=== PATIENT | female | born 1985 | race Caucasian/White ===

== ENCOUNTER 2017-01-24 12:02 | Outpatient (CLI) | payer OTHER ==
[~2017-01-24] VITALS: Ht 157.5 cm; Wt 93.5 kg
[~2017-01-24 12:02] MED LIST: IBUP-1050 PO; NUVVR VAGRING; SUMA25TA12 PO
[2017-01-24 13:15] LABS: HEMATOCRIT 34.8 % (37-47); MEAN CELL VOLUME 92.3 fL (80-100); MEAN CORPUSCULAR HEMOGLOBIN 31.8 pg (25-34); MEAN CORPUSCULAR HGB CONC 34.5 g/dl (32-36); MEAN PLATELET VOLUME 10.8 fL (7.4-10.4); PLATELET COUNT 168 K/uL (130-400); RED BLOOD COUNT 3.77 M/uL (4.2-5.4); WHITE BLOOD COUNT 11.42 K/uL (4.8-10.8)
[2017-01-24 13:33] VITALS: Ht 157.5 cm; Wt 93.5 kg
[2017-01-24] MEDS ORDERED: MAGN1TAB19 (13:36)
[2017-01-24] MEDS ORDERED: PRENTAB26 PO (13:36)
[2017-01-24 13:40] LABS: ALB/GLOB RATIO 0.6 (0.9-2); ALKALINE PHOSPHATASE 158 U/L (45-117); ALT/SGPT 15 U/L (12-78); AST/SGOT 19 U/L (15-37); BLOOD UREA NITROGEN 7 mg/dl (7-18); BUN/CREATININE RATIO 12.8 (10-20); CALCIUM 8.7 mg/dl (8.5-10.1); CARBON DIOXIDE 21 mmol/L (21-32); CHLORIDE 108 mmol/L (98-107); CREATININE 0.54 mg/dl (0.60-1.20); GLUCOSE 70 mg/dl (70-99); POTASSIUM 3.9 mmol/L (3.5-5.1); SODIUM 138 mmol/L (136-145)
--- NOTE | 2017-01-24 14:48 | Progress Note ---
Progress Note Date of Service Jan 24, 2017. Progress Note Outpatient Note 32 F P0000 at 39.3 weeks seen in office earlier today and had some RUQ pain with soft stools this AM. BP and urine dipped negative in office today. Patient seen and PIH labs done and all wnl. Urine negative for protein and BP here not elevated at 131/77. FHT Cat 1. No contractions. No leakage of fluid orn any bleeding. She does have RUQ pain with deep palpation which seems to be positional with the baby in her rib cage due to larger size. Will d/c home not in labor with no evidence for gestational hypertension or pre-eclampsia. Last 24 Hours Test 01/24/17 12:59 White Blood Count 11.42 K/uL Red Blood Count 3.77 M/uL Hemoglobin 12.0 g/dL Hematocrit 34.8 % Mean Corpuscular Volume 92.3 fL Mean Corpuscular Hemoglobin 31.8 pg Mean Corpuscular Hemoglobin Concent 34.5 g/dl RDW Standard Deviation 52.5 fL RDW Coefficient of Variation 15.7 % Platelet Count 168 K/uL Mean Platelet Volume 10.8 fL Sodium Level 138 mmol/L Potassium Level 3.9 mmol/L Chloride Level 108 mmol/L Carbon Dioxide Level 21 mmol/L Anion Gap 9.0 mmol/L Blood Urea Nitrogen 7 mg/dl Creatinine 0.54 mg/dl Est Creatinine Clear Calc Drug Dose 159.3 ml/min Estimated GFR () 144.7 Estimated GFR (Non- 124.9 BUN/Creatinine Ratio 12.8 Random Glucose 70 mg/dl Calcium Level 8.7 mg/dl Total Bilirubin 0.2 mg/dl Direct Bilirubin < 0.1 mg/dl Aspartate Amino Transf (AST/SGOT) 19 U/L Alanine Aminotransferase (ALT/SGPT) 15 U/L Alkaline Phosphatase 158 U/L Total Protein 6.2 gm/dl Albumin 2.4 gm/dl Globulin 3.8 gm/dl Albumin/Globulin Ratio 0.6
== END 2017-01-24 14:55 | disposition home or self-care (01) ==
LOC: C.LD 12:02 → C.OPB 12:02 → EEVIPCON 12:02 → C.LD 13:25 → C.OPB 14:55
PROVIDERS: ATTEND Obstetrics & Gynecology
DX: O99.89 Other specified diseases and conditions complicating pregnancy, childbirth and the puerperium (principal); R10.11 Right upper quadrant pain; Z3A.39 39 weeks gestation of pregnancy

== ENCOUNTER 2017-02-02 08:24 | Inpatient (IN) | payer OTHER ==
[~2017-02-02] VITALS: Ht 157.5 cm; Wt 92.7 kg
[~2017-02-02 08:24] MED LIST changes: +MAGN1TAB19; +PRENTAB26 PO
[2017-02-02] MEDS ORDERED: LACTATED RINGER'S 1000ML 1,000 ML IV PRN (08:48)
[2017-02-02] MEDS ORDERED: DINOPROSTONE 10 MG INSERT PV ONE ×2 (09:00→21:15)
--- NOTE | 2017-02-02 09:24 | Progress Note ---
Progress Note Date of Service Feb 02, 2017. Progress Note 32 W F P0010 at 40.5 weeks for post-dates. GBS is negative. Cervix 1/50/-3/ posterior/Intact. EFW 8.5 lbs. Cervidil 10 mg inserted vaginally for cervical ripening. FHT Cat 1. Anticipate normal delivery.
[2017-02-02 09:42] LABS: HEMATOCRIT 34.9 % (37-47); MEAN CELL VOLUME 93.1 fL (80-100); MEAN CORPUSCULAR HEMOGLOBIN 31.7 pg (25-34); MEAN CORPUSCULAR HGB CONC 34.1 g/dl (32-36); MEAN PLATELET VOLUME 11.1 fL (7.4-10.4); PLATELET COUNT 171 K/uL (130-400); RED BLOOD COUNT 3.75 M/uL (4.2-5.4); WHITE BLOOD COUNT 12.19 K/uL (4.8-10.8)
[2017-02-02 11:02] VITALS: Ht 157.5 cm; Wt 92.7 kg
[2017-02-02] MEDS ORDERED: CALCIUM CARBONATE 500 MG CHEWABLE ONE (20:13)
[2017-02-02] MEDS ORDERED: NURSING VERBAL MED ORDER ONE (20:15)
[2017-02-02] MEDS ORDERED: CALCIUM CARBONATE 500 MG CHEWABLE PO PRN (20:15)
--- NOTE | 2017-02-02 21:30 | Progress Note ---
Progress Note Date of Service Feb 02, 2017. Progress Note cervidil pulled out Cervix /-3/soft/posterior FHT Cat 1 Cervidil 10 mg placed vaginally
[2017-02-03] MEDS ORDERED: LACTATED RINGER'S 1000ML 500 ML IV PRN ×2 (09:16→18:18)
[2017-02-03] MEDS ORDERED: OXYTOCIN 30 UNITS/500ML NSS IV PRN (09:30)
[2017-02-03] MEDS: LACTATED RINGER'S 1000ML 1,000 ML IV SCH ×3 (10:26→20:47)
[2017-02-03] MEDS ORDERED: EpHEDrine SULFATE INJ 50 MG/ML AMP ONE (16:23)
[2017-02-03] MEDS ORDERED: BUPIVACAINE 0.25% 30 ML VIAL ONE (16:23)
[2017-02-03] MEDS ORDERED: FENTANYL 2MCG/ML ROPIV 1.25MG/ML 100ML BAG EPI ONE (16:24)
[2017-02-03] MEDS: FENTANYL CITRATE INJ 50 MCG/1 ML 2 ML VIAL ONE ×2 (16:36→17:23)
[2017-02-03] MEDS ORDERED: ACETAMINOPHEN 325 MG TAB PO STA (16:52)
[2017-02-03] MEDS ORDERED: ACETAMINOPHEN 325 MG TAB ONE (16:55)
[2017-02-03] MEDS ORDERED: NALOXONE HCL INJ 1 MG in SODIUM CHLORIDE 0.9% 1000ML 1,000 ML IV PRN (18:18)
[2017-02-03] MEDS ORDERED: NALOXONE HCL INJ 0.4 MG/1 ML VIAL/CARP IV PRN (18:30)
[2017-02-03] MEDS ORDERED: PROMETHAZINE HCL INJ 6.25 MG in SODIUM CHLORIDE 0.9% 50ML 50 ML IV PRN (18:30)
[2017-02-03] MEDS ORDERED: DiphenhydrAMINE HCL 50 MG/ML VIAL IV PRN (18:30)
[2017-02-03] MEDS ORDERED: ONDANSETRON INJ 2 MG/ML 2 ML VIAL IV PRN (18:30)
[2017-02-03] MEDS ORDERED: EpHEDrine SULFATE INJ 50 MG/ML AMP IV PRN (18:30)
[2017-02-03] MEDS ORDERED: NALBUPHINE HCL INJ 10 MG/ML AMP IV PRN (18:30)
[2017-02-03] MEDS: FENTANYL 2MCG/ML ROPIV 1.25MG/ML 100ML BAG EPI PRN (19:02)
[2017-02-03] MEDS: ACETAMINOPHEN 325 MG TAB PO PRN (21:13)
[2017-02-04] MEDS: ACETAMINOPHEN 325 MG TAB PO PRN ×2 (01:26→21:28)
[2017-02-04] MEDS: FENTANYL 2MCG/ML ROPIV 1.25MG/ML 100ML BAG EPI PRN (01:44)
[2017-02-04] MEDS ORDERED: METHYLERGONOVINE MALEATE 0.2 MG/ML AMP ONE (04:14)
[2017-02-04] MEDS ORDERED: SUPERCREAM 0.870 % 15GM JAR EXT PRN (04:45)
[2017-02-04] MEDS ORDERED: BENZOCAINE 20% AER SPR 82.5 GM CAN EXT PRN (04:45)
[2017-02-04] MEDS ORDERED: DIPHTHERIA/TETANUS/PERTUSSIS 0.5 ML SYR/VIAL IM. ONE (04:45)
[2017-02-04] MEDS ORDERED: HYDROCORTISONE ACETATE 25 MG SUPP PR PRN (04:45)
[2017-02-04] MEDS ORDERED: LANOLIN OINT EXT PRN ×2 (04:45)
[2017-02-04] MEDS ORDERED: MISOPROSTOL 200 MCG TAB PR SCH (04:45)
[2017-02-04] MEDS ORDERED: METHYLERGONOVINE MALEATE 0.2 MG/ML AMP IM ONE (04:45)
[2017-02-04] MEDS ORDERED: OXYTOCIN 30 UNITS/500ML NSS IV PRN (04:45)
--- NOTE | 2017-02-04 05:43 | DELIVERY SUMMARY ---
DATE OF OPERATION: 02/04/2017 TIME OF DELIVERY: 4:08 a.m. DELIVERY OF PLACENTA: 4:11 a.m. DELIVERY NOTE: Patient is a 32-year-old, 2, para 0 at 41 weeks gestation, who was admitted to labor and delivery for a scheduled induction of labor, secondary to post dates. She received 2 doses of Cervidil and oxytocin for labor augmentation. She received an epidural for anesthesia. Artificial rupture of membranes was performed at 1750 with clear amniotic fluid noted. She reached complete dilation at 1:47 a.m. on 02/04/2017 and pushed to delivery at 4:08 a.m. She delivered a viable female infant in the right occiput anterior position to an intact perineum. The anterior shoulder was delivered with Drew and suprapubic pressure. The rest of the baby was delivered without complication and placed on the patient's abdomen. Cord was clamped x2 and cut. Apgars were 8 at 1 minute, 9 at 5 minutes. Please see nursing notes for further baby assessment. Cord blood was then obtained and an intact placenta with a 3-vessel cord was delivered at 4:11 a.m. Oxytocin infusion was then begun. The lower uterine segment and vagina were cleared of any blood clots and debris. It was noted that she continued to have significant bleeding. Therefore, she was given 0.25 mg of Methergine IM and 1000 mcg of Cytotec rectally. Excellent uterine tone was noted after administration of both medications and fundal massage. Exploration of the perineum noted a second-degree vaginal laceration, which was repaired with 2-0 and 3-0 Vicryl sutures in a normal fashion. Excellent hemostasis was noted. No other lacerations were seen. Estimated blood loss was 400 mL. All sponge, instrument and needle counts were found to be correct x2. Both patient and baby tolerated the delivery well and were sent to recovery with stable vital signs. I attest to the content of the Intraoperative Record and any orders documented therein. Any exception s are noted below.
[2017-02-04 07:15] VITALS: BP 126/83; PULSE 109; TEMP 36.7; O2SAT 97
--- NOTE | 2017-02-04 07:38 | Anesthesia Procedure Note ---
Anesthesia Epidural Removal Nt Date & Time Feb 04, 2017 at 07:37 Vital Signs Pain Intensity: 0.0 Notes Mental Status: alert / awake / arousable, participated in evaluation Nausea / Vomiting: adequately controlled Pain: adequately controlled Airway Patency, RR, SpO2: stable & adequate BP & HR: stable & adequate Hydration State: stable & adequate Neuraxial Anesthesia: was administered, sensory block is resolved Anesthetic Complications: no major complications apparent, pt satisfied with anesthetic care Epidural: removed without complications, with tip intact
[2017-02-04] MEDS: PRENATAL VITAMIN TAB PO SCH (07:41)
[2017-02-04] MEDS: DOCUSATE SODIUM 100 MG CAP PO SCH ×2 (07:41→19:43)
[2017-02-04] MEDS: IBUPROFEN 600 MG TAB PO PRN ×4 (07:41→19:44)
[2017-02-04] MEDS: FERROUS SULFATE 325 MG TAB PO SCH (07:41)
[2017-02-04 13:39] VITALS: BP 116/81; PULSE 97; TEMP 36.9
[2017-02-04 15:20] VITALS: BP 132/80; PULSE 111; TEMP 36.9
[2017-02-04 19:45] VITALS: BP 119/77; PULSE 96; TEMP 36.5
[2017-02-04 23:40] VITALS: BP 121/77; PULSE 100; TEMP 36.6
[2017-02-05 04:05] VITALS: BP 94/53; PULSE 98; TEMP 36.5
[2017-02-05] MEDS: IBUPROFEN 600 MG TAB PO PRN ×3 (04:19→18:53)
[2017-02-05 06:48] LABS: HEMATOCRIT 27.3 % (37-47)
[2017-02-05 07:15] VITALS: BP 105/70; PULSE 87; TEMP 36.4
[2017-02-05] MEDS: FERROUS SULFATE 325 MG TAB PO SCH (07:17)
[2017-02-05] MEDS: DOCUSATE SODIUM 100 MG CAP PO SCH ×2 (07:17→19:43)
[2017-02-05] MEDS: PRENATAL VITAMIN TAB PO SCH (07:17)
[2017-02-05] MEDS: ACETAMINOPHEN 325 MG TAB PO PRN ×3 (07:18→22:38)
--- NOTE | 2017-02-05 09:15 | OB/GYN Progress Note ---
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 Subjective conversation w/ patient, physical exam Ambulation: ambulating normally Voiding: no voiding problems Passing Gas: Yes Diet Tolerance: Regular Diet Lochia: Moderate Review of Systems Constitutional: No fever, No chills, No sweats, No weight loss, No weakness, No fatigue, No problem reported Respiratory: No cough, No sputum, No wheezing, No shortness of breath, No dyspnea on exertion, No dyspnea at rest, No hemoptysis, No problem reported Cardiac: No chest pain, No orthopnea, No PND, No edema, No claudication, No palpitations, No problem reported Breast: No see HPI, No breast lump, No change in shape, No nipple discharge, No breast pain, No problem reported Abdomen: No pain, No nausea, No vomiting, No diarrhea, No constipation, No GI bleeding, No problem reported Female : No see HPI, No dysuria, No urinary frequency, No hematuria, No incontinence, No abnormal vaginal bleeding, No vaginal discharge, No problem reported Objective Vital Signs Date Time Temp Pulse Resp B/P (MAP) Pulse Ox O2 Delivery O2 Flow Rate FiO2 02/05/17 07:15 36.4 87 20 105/70 (82) Room Air 02/05/17 07:15 Room Air 02/05/17 04:05 36.5 98 16 94/53 (67) Room Air 02/04/17 23:40 Room Air 02/04/17 23:40 36.6 100 18 121/77 (92) Room Air 02/04/17 19:45 36.5 96 18 119/77 (91) Room Air 02/04/17 15:20 36.9 111 18 132/80 (97) Room Air 02/04/17 15:20 Room Air 02/04/17 13:39 36.9 97 16 116/81 (93) Room Air Physical Exam General Appearance: WELL-APPEARING, WD/WN, NO APPARENT DISTRESS Respiratory/Chest: chest non-tender, lungs clear, normal breath sounds, no respiratory distress, no accessory muscle use Cardiovascular: regular rate, rhythm, no edema, no gallop, no JVD, no murmur Abdomen: normal bowel sounds, non tender, no organomegaly, no pulsatile mass Fundus: Boggy Extremities: normal range of motion, non-tender, normal inspection, no pedal edema, no calf tenderness Laboratory Results Last 24 Hours Test 02/05/17 06:01 Hemoglobin 9.3 g/dL Hematocrit 27.3 % Assessment and Plan Day Number: 1 Continue Routine Care: VD day #1 Pt doing well anticipate disch tomorrow
[2017-02-05 15:15] VITALS: BP 114/77; TEMP 36.2; O2SAT 98
[2017-02-05] MEDS ORDERED: BISACODYL 5 MG TABEC PO SCH (20:00)
[2017-02-06] VITALS: BP 129/63; PULSE 81; TEMP 36.7; O2SAT 97
[2017-02-06] MEDS: IBUPROFEN 600 MG TAB PO PRN (05:36)
[2017-02-06] MEDS ORDERED: BISACODYL 10 MG SUPP PR PRN (07:00)
[2017-02-06 07:16] LABS: HEMATOCRIT 28.9 % (37-47); MEAN CELL VOLUME 94.1 fL (80-100); MEAN CORPUSCULAR HEMOGLOBIN 30.6 pg (25-34); MEAN CORPUSCULAR HGB CONC 32.5 g/dl (32-36); MEAN PLATELET VOLUME 10.3 fL (7.4-10.4); PLATELET COUNT 162 K/uL (130-400); RED BLOOD COUNT 3.07 M/uL (4.2-5.4); WHITE BLOOD COUNT 12.23 K/uL (4.8-10.8)
[2017-02-06 07:45] VITALS: BP 118/72; PULSE 82; TEMP 36.7; O2SAT 99
[2017-02-06] MEDS: PRENATAL VITAMIN TAB PO SCH (08:19)
[2017-02-06] MEDS: DOCUSATE SODIUM 100 MG CAP PO SCH (08:19)
[2017-02-06] MEDS: FERROUS SULFATE 325 MG TAB PO SCH (08:19)
[2017-02-06] MEDS: ACETAMINOPHEN 325 MG TAB PO PRN (08:20)
--- NOTE | 2017-02-06 09:15 | OB/GYN Progress Note ---
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 Subjective conversation w/ patient, physical exam Ambulation: ambulating normally Voiding: no voiding problems Passing Gas: Yes Diet Tolerance: Regular Diet Lochia: Moderate Feeding Type: Breast Feeding Review of Systems Constitutional: No fever, No chills, No sweats, No weight loss, No weakness, No fatigue, No problem reported Respiratory: No cough, No sputum, No wheezing, No shortness of breath, No dyspnea on exertion, No dyspnea at rest, No hemoptysis, No problem reported Cardiac: No chest pain, No orthopnea, No PND, No edema, No claudication, No palpitations, No problem reported Breast: No see HPI, No breast lump, No change in shape, No nipple discharge, No breast pain, No problem reported Abdomen: No pain, No nausea, No vomiting, No diarrhea, No constipation, No GI bleeding, No problem reported Female : No see HPI, No dysuria, No urinary frequency, No hematuria, No incontinence, No abnormal vaginal bleeding, No vaginal discharge, No problem reported Objective Vital Signs Date Time Temp Pulse Resp B/P (MAP) Pulse Ox O2 Delivery O2 Flow Rate FiO2 02/06/17 00:00 36.7 81 16 129/63 (85) 97 Room Air 02/06/17 00:00 Room Air 02/05/17 15:20 Room Air 02/05/17 15:15 36.2 15 114/77 (89) 98 Room Air Physical Exam General Appearance: WELL-APPEARING, WD/WN, NO APPARENT DISTRESS, uncomfortable Respiratory/Chest: chest non-tender, lungs clear, normal breath sounds, no respiratory distress, no accessory muscle use Cardiovascular: regular rate, rhythm, no edema, no gallop, no JVD, no murmur Abdomen: normal bowel sounds, non tender, soft, no organomegaly, no pulsatile mass Fundus: Firm Extremities: normal range of motion, non-tender, normal inspection, no pedal edema, no calf tenderness Laboratory Results Last 24 Hours Test 02/06/17 06:28 White Blood Count 12.23 K/uL Red Blood Count 3.07 M/uL Hemoglobin 9.4 g/dL Hematocrit 28.9 % Mean Corpuscular Volume 94.1 fL Mean Corpuscular Hemoglobin 30.6 pg Mean Corpuscular Hemoglobin Concent 32.5 g/dl RDW Standard Deviation 55.1 fL RDW Coefficient of Variation 15.9 % Platelet Count 162 K/uL Mean Platelet Volume 10.3 fL Assessment and Plan Day Number: 2 Continue Routine Care: VD day #2 pt doing well No complaints d/c home with instructions
--- NOTE | 2017-02-06 09:17 | Discharge Instructions ---
Discharge Instructions Date of Service Feb 06, 2017. Admission Reason for Admission: Induction Discharge Discharge Diagnosis / Problem: Discharge Goals Goal(s): Routine recovery after delivery Activity Recommendations Activity Limitations: as noted below . Current Hospital Diet Patient's current hospital diet: Regular OB Diet Discharge Diet Recommended Diet: Regular Diet Pending Studies Studies pending at discharge: no Medical Emergencies . Who to Call and When: Medical Emergencies: If at any time you feel your situation is an emergency, please call 911 immediately. . Non-Emergent Contact Non-Emergency issues call your: Specialist . . "Provider Documentation" section prepared by Uri Olivares. . VTE Core Measure Inpt VTE Proph given/why not?: Treatment not indicated
[2017-02-06] MEDS ORDERED: MTR600X PO (09:18)
--- NOTE | 2017-02-06 09:54 | Discharge Instructions ---
Discharge Instructions Date of Service Feb 06, 2017. Admission Reason for Admission: Induction Discharge Discharge Diagnosis / Problem: Discharge Goals Goal(s): Routine recovery after delivery Activity Recommendations Activity Limitations: as noted below ACTIVITY RECOMMENDATIONS: * Gradual return to full activity over the next 2-3 weeks. * No lifting - nothing heavier than baby over the next 2-3 weeks. * Do not engage in vigorous exercise, sexual activity or sports until cleared by your physician. * Do not drive or operate any motorized equipment until cleared by your physician. * You may shower/bathe daily. BREAST CARE: If you are not breast feeding: * Wear a supportive bra 24 hours a day for one to two weeks. * Avoid stimulating your breasts and nipples as much as possible during the first few weeks after delivery. * When taking a shower, have the warm water hit your back, not breasts. * When your breasts feel full, apply ice packs. Usually three to four times a day helps ease the discomfort. * Take a mild pain medication (Tylenol/Motrin) when you are uncomfortable. If breast feeding: * Use breast milk to lubricate nipples. Lansinoh cream may be used for sore nipples. You do not need to remove cream prior to breast feeding. If using a different brand of cream, check the label for directions regarding removal of cream prior to nursing. * Wear a supportive bra. * If having problems with breasts or breast feeding, call a product consultant or your health care provider. EPISIOTOMY CARE: After delivery, if you have an episiotomy (stitches), the following steps will ease discomfort and aid healing. * For the first 24 hours after delivery, place ice packs next to your episiotomy to help reduce swelling. * After the first 24 hour-period, sitz baths, either portable or in the tub, are suggested. A shower with a shower arm sprayed over the episiotomy may be comforting. * Kathy care should be done after each voiding and bowel movement. Squirt warm water from a plastic bottle over the perineum (region of the body between the anus and urinary opening) and pat dry. * Use Dermoplast to ease discomfort. Shake container. [place] directly over the episiotomy. * Place a Tucks on a clean sanitary pad next to your episiotomy. OVER THE COUNTER MEDICATION: * For discomfort or pain, you may use Acetaminophen (Tylenol), Ibuprofen (Advil ), or Naproxen (Aleve) following the package directions. * For constipation you may use Colace following the package directions. SPECIAL CARE INSTRUCTIONS: When you are discharged from the hospital, it is important for you to follow the instructions listed below: * During the first week at home, you should be able to care for yourself and your baby. In addition, the usual light household activities are encouraged. * Limit your activities to the way you feel. Do not try to clean the house or move furniture. Be sensible. * If you actively engage in sports and have done so up until the time of your delivery, you may resume these activities as soon as you feel able. This may take up to one month or even longer. Use good judgment. * Continue to take your vitamins for at least six weeks after the of your baby. * Your diet need not be limited unless you were on a special diet before your delivery. Breast-feeding mothers need around 2500 calories per day and at least 64-80 ounces of fluid per day (8 to 10 glasses). * You should eat foods from the four major food groups. Crash diets or fad diets are to be avoided. Eating lean meats, fresh fruits and vegetables, low-fat dairy products, high fiber foods and a regular exercise program, will help you get back to your pre- weight without putting your health at risk. * Constipation is sometimes a problem after delivery. Take a mild laxative as needed. If breast feeding, Milk of Magnesia is acceptable to use. You may use a suppository or Fleets enema if no episiotomy. * A daily shower or tub bath is suggested. Be sure to thoroughly and gently dry the perineum. * A bloody vaginal discharge will usually continue until around four weeks post . A small amount of bleeding may continue for as long as six weeks. Vaginal discharge changes from the bright red bleeding after delivery to pink then brownish and finally yellowish-pink before becoming white and disappearing. * Bleeding may increase with activity. Your first period may come in 4-8 weeks. If you are breast feeding, your period may be delayed even longer. * [place] (sex) can begin whenever both you and your partner feel comfortable and do not have any form of genital infection. It is recommended that you wait until after your return appointment and discuss with your physician. If you have questions, please talk to your health care practitioner. A condom should be used to prevent infection and . * Foreplay, gentle intercourse and lubrication is very important the first several times to prevent pain. A water-based lubricant such as K-Y jelly or Astroglide may be used. * Tampons may be used six weeks after delivery. * Douching should be avoided for 6 weeks after delivery. * If you have RH negative blood and your baby is RH positive, you will receive RHOGAM by injection prior to discharge. The nurse will give you a card to keep with you that has the date and place that you received RHOGAM after delivery. * During your care, you had a Rubella screen done to check for the presence of rubella antibodies in your blood. If your test was negative, you will receive a Rubella vaccine prior to discharge. This vaccine may cause a fever, soreness at the injection site and flu-like symptoms. If these symptoms persist, notify your health care practitioner. is not advised for three months after a Rubella vaccine. There is a higher chance of having a baby with defects if conceived within three months of getting the vaccine. * If you were discharged 24 hours from delivery or before 48 hours: Visiting nurses will come to your home 48 hours after discharge to assess you and your baby. The visiting nurse will meet with you while you are in the hospital to arrange a time and get directions to your home. * Verbalizes understanding of car seat law as reviewed with patient nursing. * Car Seat hand-out given and reviewed with patient by nursing. * Shaken baby information reviewed with patient by nursing. Call you doctor if: * Heavy bleeding (saturating several pads an hour) or passing clots the size of your fist. * A fever >101 degrees F (38.3 degrees C) on two occasions four hours apart and/or chills. * Unusual pain in the pelvic or vaginal areas. * "Baby Blues" lasting longer than two weeks. If you have any questions or concerns, call your health care practitioner at . FOLLOW-UP VISIT: * Please call the office at to schedule a 6 week examination. It is important you keep this appointment. * It is important for you to make arrangements for either yearly or twice yearly check-ups thereafter. . Current Hospital Diet Patient's current hospital diet: Regular OB Diet Discharge Diet Recommended Diet: Clear Liquid Diet Pending Studies Studies pending at discharge: no Medical Emergencies . Who to Call and When: Medical Emergencies: If at any time you feel your situation is an emergency, please call 911 immediately. . Non-Emergent Contact Non-Emergency issues call your: Specialist . . "Provider Documentation" section prepared by Uri Olivares. . VTE Core Measure Inpt VTE Proph given/why not?: Treatment not indicated
[2017-02-06 10:34] VITALS: BP_DIAS 72; PULSE 82; TEMP 36.7
== END 2017-02-06 10:35 | disposition home or self-care (01) | DRG 775 ==
LOC: C.LD 08:24 → C.OBG 02-04 07:27
PROVIDERS: ADMIT Obstetrics & Gynecology; ATTEND Obstetrics & Gynecology
PROC: 3E0P7GC Introduction of Other Therapeutic Substance into Female Reproductive, Via Natural or Artificial Opening (ICD-10-PCS; 2017-02-02)
PROC: 10E0XZZ Delivery of Products of Conception, External Approach (ICD-10-PCS; principal; 2017-02-04)
PROC: 0KQM0ZZ Repair Perineum Muscle, Open Approach (ICD-10-PCS; principal; 2017-02-04)
DX: O48.0 Post-term pregnancy (principal); Z3A.41 41 weeks gestation of pregnancy; O70.1 Second degree perineal laceration during delivery; Z37.0 Single live birth

== ENCOUNTER 2017-08-02 11:25 | Emergency (ER) | payer OTHER ==
[~2017-08-02] VITALS: Ht 157.5 cm; Wt 73.9 kg
[~2017-08-02 11:25] MED LIST changes: -IBUP-1050 PO; +MTR600X PO; -NUVVR VAGRING; -SUMA25TA12 PO
[2017-08-02 11:26] VITALS: TEMP 36.9; Ht 157.5 cm; Wt 73.9 kg
[2017-08-02] MEDS ORDERED: SODIUM CHLORIDE 0.9% 1000ML 1,000 ML IV STA ×2 (11:37→13:39)
[2017-08-02] MEDS ORDERED: ONDANSETRON INJ 2 MG/ML 2 ML VIAL IV STA ×2 (11:37→13:39)
[2017-08-02 12:21] LABS: BASO % 0.1 %; BASO ABS # 0.01 K/uL (0-0.2); EOS % 0.1 %; EOS ABS # 0.02 K/uL (0-0.5); HEMATOCRIT 44.9 % (37-47); HEMOGLOBIN 16.3 g/dL (12.0-16.0); IG# 0.03 K/uL (0.00-0.02); LYMPH % 4.5 %; LYMPH ABS # 0.61 K/uL (1.2-3.4); MEAN CORPUSCULAR HEMOGLOBIN 32.7 pg (25-34); MEAN CORPUSCULAR HGB CONC 36.3 g/dl (32-36); MEAN PLATELET VOLUME 10.4 fL (7.4-10.4); MONO % 2.9 %; NEUT % 92.2 %; NEUT ABS # 12.61 K/uL (1.4-6.5); PLATELET COUNT 196 K/uL (130-400); RED CELL DISTRIBUTION WIDTH SD 42.8 fL (36.4-46.3); WHITE BLOOD COUNT 13.68 K/uL (4.8-10.8)
[2017-08-02 12:27] LABS: ALBUMIN 4.3 gm/dl (3.4-5.0); CALCIUM 9.1 mg/dl (8.5-10.1); CREATININE 0.72 mg/dl (0.60-1.20); POTASSIUM 4.1 mmol/L (3.5-5.1)
[2017-08-02 12:30] LABS: TOTAL PROTEIN 7.4 gm/dl (6.4-8.2)
--- NOTE | 2017-08-02 13:03 | EMERGENCY ROOM VISIT NOTE ---
History First contact with patient: 11:29 Chief Complaint: VOMITING Stated Complaint: VOMITTING, DIARRHEA, COLD SWEATS, FEVER Nursing Triage Summary: pt to the ED with c/o n/v/d for the past 6 hrs History of Present Illness The patient is a 32 year old female who presents to the Emergency Room with complaints of vomiting and diarrhea. The patient reports that she developed diarrhea approximately 12 hours ago. She has had multiple episodes of diarrhea since then. She reports cramping abdominal pains which come and go in waves. She denies any pain at this time. She states that for the past 6 hours, she has also had multiple episodes of vomiting. She has been unable to keep anything down, including small sips of fluids. She reports feeling lightheaded and weak. She has not tried taking any medications for her symptoms. She has had prior appendectomy but denies any other abdominal surgeries. She is currently breast-feeding and denies chance of . She denies urinary symptoms, fevers, cough, sore throat, or ear ache. Review of Systems A complete 10 point review of systems was reviewed with the patient with pertinent positives and negatives as per history of present illness. All else were negative. Past Medical/Surgical History Medical Problems: (1) Appendectomy (2) Chronic Sinusitis Nos (3) Post-dates (4) Tobacco Use Disorder Family History Hypertension Social History Smoking Status: Never Smoker Alcohol Use: occasionally Marital Status: single Housing Status: lives alone Occupation Status: employed Current/Historical Medications Scheduled Multivit/Min/Iron/Fol Ac/Pren ( Vitamin), 1 TAB PO DAILY Ondasetron Odt (Zofran Odt), 4 MG SL Q6H Physical Exam Vital Signs Date Time Temp Pulse Resp B/P (MAP) Pulse Ox O2 Delivery O2 Flow Rate FiO2 08/02/17 15:01 100 20 90/62 100 08/02/17 13:31 115/70 08/02/17 13:29 111 20 86/58 98 Room Air 08/02/17 11:26 36.9 116 20 110/79 99 Room Air Physical Exam VITALS: Vitals are noted on the nurse's note and reviewed by myself. Vital signs stable. GENERAL: This is a 32-year-old female, in no acute distress but uncomfortable appearing, well-developed well-nourished. SKIN: The skin was without rashes. EARS: External auditory canals clear, tympanic membranes pearly muller without erythema or effusion bilaterally. EYES: Pupils equal round and reactive to light and accommodation. MOUTH: Mucous membranes moist. Tonsils are not enlarged. Pharynx without erythema or exudate. HEART: Regular rate and rhythm without murmurs gallops or rubs. LUNGS: Clear to auscultation bilaterally without wheezes, rales or rhonchi. ABDOMEN: Positive bowel sounds x 4. Soft, minimal tenderness to palpation across the lower abdomen with no guarding or rebound tenderness. NEURO: Patient was alert and oriented to person place and time. Medical Decision & Procedures Laboratory Results 08/02/17 11:48 Red Blood Count 4.99, Mean Corpuscular Volume 90.0, Mean Corpuscular Hemoglobin 32.7, Mean Corpuscular Hemoglobin Concent 36.3, Mean Platelet Volume 10.4, Neutrophils (%) (Auto) 92.2, Lymphocytes (%) (Auto) 4.5, Monocytes (%) (Auto) 2.9, Eosinophils (%) (Auto) 0.1, Basophils (%) (Auto) 0.1, Neutrophils # (Auto) 12.61, Lymphocytes # (Auto) 0.61, Monocytes # (Auto) 0.40, Eosinophils # (Auto) 0.02, Basophils # (Auto) 0.01 08/02/17 11:48 Test 08/02/17 11:48 08/02/17 12:40 08/02/17 14:30 White Blood Count 13.68 K/uL (4.8-10.8) Red Blood Count 4.99 M/uL (4.2-5.4) Hemoglobin 16.3 g/dL (12.0-16.0) Hematocrit 44.9 % (37-47) Mean Corpuscular Volume 90.0 fL (80-100) Mean Corpuscular Hemoglobin 32.7 pg (25-34) Mean Corpuscular Hemoglobin Concent 36.3 g/dl (32-36) Platelet Count 196 K/uL (130-400) Mean Platelet Volume 10.4 fL (7.4-10.4) Neutrophils (%) (Auto) 92.2 % Lymphocytes (%) (Auto) 4.5 % Monocytes (%) (Auto) 2.9 % Eosinophils (%) (Auto) 0.1 % Basophils (%) (Auto) 0.1 % Neutrophils # (Auto) 12.61 K/uL (1.4-6.5) Lymphocytes # (Auto) 0.61 K/uL (1.2-3.4) Monocytes # (Auto) 0.40 K/uL (0.11-0.59) Eosinophils # (Auto) 0.02 K/uL (0-0.5) Basophils # (Auto) 0.01 K/uL (0-0.2) RDW Standard Deviation 42.8 fL (36.4-46.3) RDW Coefficient of Variation 13.0 % (11.5-14.5) Immature Granulocyte % (Auto) 0.2 % Immature Granulocyte # (Auto) 0.03 K/uL (0.00-0.02) Anion Gap 8.0 mmol/L (3-11) Est Creatinine Clear Calc Drug Dose 105.6 ml/min Estimated GFR () 128.4 Estimated GFR (Non- 110.8 BUN/Creatinine Ratio 15.3 (10-20) Calcium Level 9.1 mg/dl (8.5-10.1) Total Bilirubin 0.7 mg/dl (0.2-1) Aspartate Amino Transf (AST/SGOT) 17 U/L (15-37) Alanine Aminotransferase (ALT/SGPT) 20 U/L (12-78) Alkaline Phosphatase 84 U/L (45-117) Total Protein 7.4 gm/dl (6.4-8.2) Albumin 4.3 gm/dl (3.4-5.0) Globulin 3.1 gm/dl (2.5-4.0) Albumin/Globulin Ratio 1.4 (0.9-2) Human Chorionic Gonadotropin, Qual NEG (NEG) Influenza Type A Antigen Neg for Influ A (NEG) Influenza Type B Antigen Neg for Influ B (NEG) Urine Color YELLOW Urine Appearance CLEAR (CLEAR) Urine pH 5.0 (4.5-7.5) Urine Specific [place] 1.020 (1.000-1.030) Urine Protein NEG (NEG) Urine Glucose (UA) NEG (NEG) Urine Ketones 2+ (NEG) Urine Occult Blood NEG (NEG) Urine Nitrite NEG (NEG) Urine Bilirubin NEG (NEG) Urine Urobilinogen NEG (NEG) Urine Leukocyte Esterase NEG (NEG) Urine Test NEG (NEG) Medications Administered Medications (Trade) Dose Ordered Sig/Gayathri Route Start Time Stop Time Status Last Admin Dose Admin Sodium Chloride 1,000 ml @ 999 mls/hr Q1H1M STAT IV 08/02/17 11:37 08/02/17 12:37 DC 08/02/17 11:59 999 MLS/HR Ondansetron HCl (Zofran Inj) 4 mg NOW STAT IV 08/02/17 11:37 08/02/17 11:39 DC 08/02/17 12:20 4 MG Sodium Chloride 1,000 ml @ 999 mls/hr Q1H1M STAT IV 08/02/17 13:39 08/02/17 14:39 DC 08/02/17 13:45 999 MLS/HR Ondansetron HCl (Zofran Inj) 4 mg NOW STAT IV 08/02/17 13:39 08/02/17 13:40 DC 08/02/17 13:44 4 MG Acetaminophen (Tylenol Tab) 1,000 mg NOW STAT PO 08/02/17 13:42 08/02/17 13:43 DC 08/02/17 13:45 1,000 MG ED Course The patient was evaluated as above. Labs were drawn and IV access was obtained. Patient was medicated with 1 L normal saline solution and 4 mg Zofran. I reevaluated the patient. She stated that she was feeling better. She requested testing for influenza, stating that her mother was very concerned about this and some of her family members have recently been diagnosed with the flu. Influenza testing was ordered. Patient was reevaluated and was feeling better but still having very slight nausea. She did request an additional liter of fluids and a second dose of Zofran. This was ordered for the patient. She was also given Tylenol for a headache. Patient was reevaluated and was feeling much better. She reports that her headaches, nausea and feelings of lightheadedness have all completely resolved. She was able to keep down crackers and fluids with no problems. Discharge instructions were reviewed with the patient. The patient verbalized understanding of my assessment and treatment plan and was discharged home in good condition. Medical Decision Differential diagnosis includes cholecystitis, gastroenteritis, colitis, IBS, IBD, foodborne illness, among others. The patient is a 32-year-old female who presents today complaining of vomiting and diarrhea. Labs revealed mild leukocytosis, likely secondary to vomiting. Kidney function and LFTs were within normal limits. was negative. Urinalysis was not suggestive of infection. Patient did request influenza testing. This had not been initially ordered due to her symptoms not being consistent with influenza. This was then ordered and was found to be negative. Patient's symptoms seem consistent with a viral gastroenteritis. She felt much better after the above treatment. She will be discharged home with a prescription of Zofran and was advised to continue to take small sips of fluids to stay hydrated. Based on the patient's presentation and work up, I feel the patient is stable for outpatient treatment. The patient was educated to return to the emergency department for any worsening of their current condition or new/concerning symptoms. She will follow up with her PCP as needed. Medication Reconcilliation Current Medication List: was personally reviewed by me Blood Pressure Screening Patient's blood pressure: Normal blood pressure Impression Primary Impression: Nausea, vomiting, and diarrhea Departure Information Dispostion Home / Self-Care Condition GOOD Prescriptions Ondasetron Odt (ZOFRAN ODT) 4 Mg Tab 4 MG SL Q6H for Nausea, #10 TAB Prov: Anastasiya Hoyt .ACACIA 08/02/17 Referrals Karri Baird M.D.([facility]) (PCP) Patient Instructions My [facility] Additional Instructions You have been prescribed Zofran to be used for any nausea or vomiting. Take as prescribed. For pain control, you can use the following [id number] medicines (if >12 yo): - Regular strength (325mg/tab) Tylenol (acetaminophen) 2 tabs every 4-6 hours as needed. Do not exceed 12 tablets in a 24 hour period. Avoid taking more than 4 grams (4000 mg) of Tylenol per day. This includes any other sources of acetaminophen you may take on a regular basis. Continue to drink frequent small sips of fluids today to stay well-hydrated. Follow-up with your primary care provider for further evaluation. Return to the emergency department with worsening symptoms or any new/ concerning symptoms.
[2017-08-02 13:22] LABS: INFLUENZA B ANTIGEN Neg for Influ B (NEG)
[2017-08-02] MEDS ORDERED: ONDA4TAB10 SL (13:40)
[2017-08-02] MEDS ORDERED: ACETAMINOPHEN 500 MG TAB PO STA (13:42)
[2017-08-02 15:01] VITALS: BP 90/62; PULSE 100; O2SAT 100
== END 2017-08-02 15:02 | disposition home or self-care (01) ==
LOC: C.EDB 11:26 → C.EDA 15:02
DX: R11.2 Nausea with vomiting, unspecified (principal); R19.7 Diarrhea, unspecified; Z82.49 Family history of ischemic heart disease and other diseases of the circulatory system

== ENCOUNTER 2017-09-02 22:49 | Emergency (ER) | payer OTHER ==
[~2017-09-02] VITALS: Ht 157.5 cm; Wt 73.3 kg
[~2017-09-02 22:49] MED LIST changes: -MAGN1TAB19; -MTR600X PO; +ONDA4TAB10 SL
[2017-09-02 22:52] VITALS: TEMP 36.7; Ht 157.5 cm; Wt 73.3 kg
[2017-09-02] MEDS ORDERED: SODIUM CHLORIDE 0.9% 1000ML 1,000 ML IV STA ×2 (23:08)
[2017-09-02] MEDS ORDERED: ONDANSETRON INJ 2 MG/ML 2 ML VIAL IV STA (23:08)
--- NOTE | 2017-09-02 23:16 | EMERGENCY ROOM VISIT NOTE ---
History First contact with patient: 22:56 Chief Complaint: ABDOMINAL PAIN Stated Complaint: VOMITING, BAD ABD CRAMPING, DIARRHEA History of Present Illness The patient is a 32 year old female who presents to the Emergency Room with complaints of vomiting and diarrhea which began approximately 6 hours ago. The patient reports that she developed multiple episodes of vomiting, diarrhea and cramping abdominal pain about 6 hours ago. She tried oral Zofran without improvement. She is unable to keep anything down. She states that her child was recently ill with vomiting and she received a notice from the child's daycare that multiple children were sick with a "stomach bug." She rates her overall discomfort a 7/10. She denies urinary symptoms, fevers or blood in her stools. She denies hematemesis. Review of Systems A complete 10 point review of systems was reviewed with the patient with pertinent positives and negatives as per history of present illness. All else were negative. Past Medical/Surgical History Medical Problems: (1) Appendectomy (2) Chronic Sinusitis Nos (3) Post-dates (4) Tobacco Use Disorder Family History Hypertension Social History Smoking Status: Never Smoker Alcohol Use: occasionally Marital Status: single Housing Status: lives alone Occupation Status: employed Current/Historical Medications Scheduled Multivit/Min/Iron/Fol Ac/Pren ( Vitamin), 1 TAB PO DAILY Ondasetron Odt (Zofran Odt), 4 MG SL Q6H Ondasetron Odt (Zofran Odt), 4 MG SL Q6H Physical Exam Vital Signs Date Time Temp Pulse Resp B/P (MAP) Pulse Ox O2 Delivery O2 Flow Rate FiO2 09/03/17 00:50 87 16 114/75 96 Room Air 09/02/17 22:52 36.7 112 18 116/75 97 Room Air Physical Exam VITALS: Vitals are noted on the nurse's note and reviewed by myself. Vital signs stable. GENERAL: This is a 32-year-old female, in no acute distress, nondiaphoretic, well-developed well-nourished. SKIN: The skin was without rashes. EARS: External auditory canals clear, tympanic membranes pearly muller without erythema or effusion bilaterally. EYES: Pupils equal round and reactive to light and accommodation. MOUTH: Mucous membranes moist. Tonsils are not enlarged. Pharynx without erythema or exudate. NECK: Supple without nuchal rigidity. No lymphadenopathy. HEART: Regular rate and rhythm without murmurs gallops or rubs. LUNGS: Clear to auscultation bilaterally without wheezes, rales or rhonchi. No retractions or accessory muscle use. ABDOMEN: Positive bowel sounds x 4. Soft, nontender to palpation. NEURO: Patient was alert and oriented to person place and time. Medical Decision & Procedures Laboratory Results 09/02/17 23:10 Red Blood Count 4.86, Mean Corpuscular Volume 88.5, Mean Corpuscular Hemoglobin 32.1, Mean Corpuscular Hemoglobin Concent 36.3, Mean Platelet Volume 10.3, Neutrophils (%) (Auto) 88.2, Lymphocytes (%) (Auto) 4.4, Monocytes (%) (Auto) 6.7, Eosinophils (%) (Auto) 0.2, Basophils (%) (Auto) 0.2, Neutrophils # (Auto) 15.36, Lymphocytes # (Auto) 0.77, Monocytes # (Auto) 1.17, Eosinophils # (Auto) 0.03, Basophils # (Auto) 0.03 09/02/17 23:10 Test 09/02/17 23:10 White Blood Count 17.41 K/uL (4.8-10.8) Red Blood Count 4.86 M/uL (4.2-5.4) Hemoglobin 15.6 g/dL (12.0-16.0) Hematocrit 43.0 % (37-47) Mean Corpuscular Volume 88.5 fL (80-100) Mean Corpuscular Hemoglobin 32.1 pg (25-34) Mean Corpuscular Hemoglobin Concent 36.3 g/dl (32-36) Platelet Count 201 K/uL (130-400) Mean Platelet Volume 10.3 fL (7.4-10.4) Neutrophils (%) (Auto) 88.2 % Lymphocytes (%) (Auto) 4.4 % Monocytes (%) (Auto) 6.7 % Eosinophils (%) (Auto) 0.2 % Basophils (%) (Auto) 0.2 % Neutrophils # (Auto) 15.36 K/uL (1.4-6.5) Lymphocytes # (Auto) 0.77 K/uL (1.2-3.4) Monocytes # (Auto) 1.17 K/uL (0.11-0.59) Eosinophils # (Auto) 0.03 K/uL (0-0.5) Basophils # (Auto) 0.03 K/uL (0-0.2) RDW Standard Deviation 41.9 fL (36.4-46.3) RDW Coefficient of Variation 13.0 % (11.5-14.5) Immature Granulocyte % (Auto) 0.3 % Immature Granulocyte # (Auto) 0.05 K/uL (0.00-0.02) Anion Gap 10.0 mmol/L (3-11) Est Creatinine Clear Calc Drug Dose 98.3 ml/min Estimated GFR () 118.4 Estimated GFR (Non- 102.2 BUN/Creatinine Ratio 16.8 (10-20) Calcium Level 9.1 mg/dl (8.5-10.1) Medications Administered Medications (Trade) Dose Ordered Sig/Gayathri Route Start Time Stop Time Status Last Admin Dose Admin Sodium Chloride 1,000 ml @ 999 mls/hr Q1H1M STAT IV 09/02/17 23:08 09/03/17 00:08 DC 09/02/17 23:08 999 MLS/HR Sodium Chloride 1,000 ml @ 999 mls/hr Q1H1M STAT IV 09/02/17 23:08 09/03/17 00:08 DC 09/02/17 23:08 999 MLS/HR Ondansetron HCl (Zofran Inj) 4 mg NOW STAT IV 09/02/17 23:08 09/02/17 23:12 DC 09/02/17 23:21 4 MG Acetaminophen (Tylenol Tab) 1,000 mg NOW STAT PO 09/02/17 23:29 09/02/17 23:30 DC 09/02/17 23:36 1,000 MG ED Course The patient was evaluated as above. Labs were drawn and IV access was obtained. Patient was medicated with 2 L normal saline solution and 4 mg Zofran IV. Patient was reevaluated and was feeling much better. She was able to tolerate fluids. She requested something for pain and was given 1 g Tylenol. Discharge instructions were reviewed with the patient. The patient verbalized understanding of my assessment and treatment plan and was discharged home in good condition. Medical Decision Differential diagnosis includes gastroenteritis, colitis, cholecystitis, C. difficile, appendicitis, foodborne illness, among others. The patient is a 32-year-old female who presents today complaining of nausea, vomiting and diarrhea. Labs revealed a fairly significant leukocytosis of 17, 000. Labs were otherwise unremarkable. Given patient's sudden onset of symptoms in family members ill with similar symptoms, I favor this is likely secondary to a viral process. She was given IV fluids and antiemetics with significant improvement of symptoms. Serial abdominal exams were performed and at no time did the patient develop any abdominal tenderness. She will be treated with Zofran and was encouraged to drink plenty of fluids. She was advised to return here with worsening vomiting, abdominal pain, fevers or other new/concerning symptoms. The patient's case was reviewed with Dr. Marsh, ED attending physician, who agreed with my assessment and treatment plan. Based on the patient's presentation and work up, I feel the patient is stable for outpatient treatment. The patient was educated to return to the emergency department for any worsening of their current condition or new/concerning symptoms. She will follow up with her PCP. Medication Reconcilliation Current Medication List: was personally reviewed by me Blood Pressure Screening Patient's blood pressure: Normal blood pressure Impression Primary Impression: Nausea, vomiting, and diarrhea Departure Information Dispostion Home / Self-Care Condition GOOD Prescriptions Ondasetron Odt (ZOFRAN ODT) 4 Mg Tab 4 MG SL Q6H for Nausea, #12 TAB Prov: Anastasiya Hoyt .ACACIA 09/03/17 Referrals Karri Baird M.D.([facility]) (PCP) Patient Instructions My [facility] Additional Instructions You have been prescribed Zofran to be used for any nausea or vomiting. Take as prescribed. For pain control, you can use the following [id number] medicines (if >12 yo): - Regular strength (325mg/tab) Tylenol (acetaminophen) 2 tabs every 4-6 hours as needed. Do not exceed 12 tablets in a 24 hour period. Avoid taking more than 4 grams (4000 mg) of Tylenol per day. This includes any other sources of acetaminophen you may take on a regular basis. - Regular strength (200 mg/tab) Advil (ibuprofen) 3-4 tabs every 6 hours as needed. Do not exceed a dose of 3200 mg per day. Drink frequent small sips of fluids to stay well-hydrated. Keep a bland diet for the next few days. I would suggest the BRAT diet (bananas , rice, applesauce, toast). As with any visit to the emergency department, you should follow-up with your primary care provider within 2-3 days for a recheck. Return here if you have worsening vomiting, focal abdominal pain, fevers, or any other new/concerning symptoms.
[2017-09-02] MEDS ORDERED: ACETAMINOPHEN 500 MG TAB PO STA (23:29)
[2017-09-02 23:48] LABS: BASO % 0.2 %; BASO ABS # 0.03 K/uL (0-0.2); EOS % 0.2 %; EOS ABS # 0.03 K/uL (0-0.5); HEMOGLOBIN 15.6 g/dL (12.0-16.0); IG# 0.05 K/uL (0.00-0.02); LYMPH % 4.4 %; LYMPH ABS # 0.77 K/uL (1.2-3.4); MEAN CELL VOLUME 88.5 fL (80-100); MEAN CORPUSCULAR HEMOGLOBIN 32.1 pg (25-34); MEAN CORPUSCULAR HGB CONC 36.3 g/dl (32-36); MEAN PLATELET VOLUME 10.3 fL (7.4-10.4); MONO % 6.7 %; MONO ABS # 1.17 K/uL (0.11-0.59); NEUT % 88.2 %; NEUT ABS # 15.36 K/uL (1.4-6.5); PLATELET COUNT 201 K/uL (130-400); RED CELL DISTRIBUTION WIDTH SD 41.9 fL (36.4-46.3); WHITE BLOOD COUNT 17.41 K/uL (4.8-10.8)
[2017-09-03 00:06] LABS: CALCIUM 9.1 mg/dl (8.5-10.1); CREATININE 0.77 mg/dl (0.60-1.20); POTASSIUM 3.6 mmol/L (3.5-5.1)
[2017-09-03] MEDS ORDERED: ONDA4TAB10 SL (00:44)
[2017-09-03] MEDS ORDERED: ONDANSETRON HOME PACK 4MG OD TAB PO ONE (00:45)
[2017-09-03 00:50] VITALS: BP 114/75; PULSE 87; O2SAT 96
== END 2017-09-03 00:51 | disposition home or self-care (01) ==
LOC: C.EDB 22:51
DX: R11.2 Nausea with vomiting, unspecified (principal); R19.7 Diarrhea, unspecified; Z90.89 Acquired absence of other organs; Z82.49 Family history of ischemic heart disease and other diseases of the circulatory system